=== PATIENT | male | born 2000 | race Caucasian/White ===

== ENCOUNTER 2021-12-13 08:43 | Inpatient (IN) | payer BC ==
[2021-12-13] VITALS (8 sets, daily range): BP systolic 120–134; BP diastolic 66–82; PULSE 73–82; TEMP 97.7–98.5
[~2021-12-13] VITALS: Ht 180.3 cm; Wt 118.2 kg
[2021-12-13 09:14] LABS: BASO # 0.1 K/mm3 (0.0-0.2); BASO % 0.3 % (0.0-2.0); EOS # 0.3 K/mm3 (0.0-0.7); EOS % 1.9 % (0.0-4.0); GRAN # 13.4 K/mm3 (1.4-6.5); GRAN % 80.3 % (42.2-75.2); HEMATOCRIT 42.6 % (42.0-52.0); HEMOGLOBIN 14.8 g/dl (13.5-18.0); LYMPH # 1.4 K/mm3 (1.2-3.4); LYMPH % 8.2 % (20.0-51.0); MEAN CELL VOLUME 82 fl (80.0-100.0); MEAN CORPUSCULAR HEMOGLOBIN 29 pg (27-31); MEAN CORPUSCULAR HGB CONC 35 g/dl (33.0-37.0); MEAN PLATELET VOLUME 11.7 fl (7.4-10.4); MONO # 1.5 K/mm3 (0.1-0.6); MONO % 8.9 % (1.7-9.3); PLATELET COUNT 199 K/mm3 (130-400); RED BLOOD COUNT 5.17 M/mm3 (4.20-5.60); REDCELL DISTRIBUTION WIDTH-CV 12.5 % (11.5-14.5)
[2021-12-13 09:32] LABS: ALBUMIN 3.2 gm/dL (3.5-5.0); BILIRUBIN,TOTAL 2.9 mg/dL (0.2-1.2); CALCIUM 9.2 mg/dL (8.4-10.2); CREATININE, serum 0.89 mg/dL (0.72-1.25); POTASSIUM 3.7 mmol/L (3.5-4.5); TOTAL PROTEIN 7.1 gm/dL (6.2-8.1)
[2021-12-13 09:34] LABS: MUCOUS Present (NOT PRESENT); PH 5 (5-8); SQUAMOUS EPITHELIAL 0-2 /hpf (0-10); URINE APPEARANCE Hazy (CLEAR/HAZY); URINE BACTERIA None Seen /hpf (NONE SEEN); URINE BILIRUBIN Positive (NEGATIVE); URINE BLOOD Negative (NEGATIVE); URINE COLOR Amber (YELLOW); URINE GLUCOSE Negative (NEGATIVE); URINE KETONE Trace (NEGATIVE); URINE LEUKOCYTE ESTERASE Negative (NEGATIVE); URINE NITRATE Negative (NEGATIVE); URINE PROTEIN(semi-quant) 1+ (NEGATIVE); URINE RBC 0-2 /hpf (0-2); URINE UROBILINOGEN >=4.0 (NEGATIVE); URINE WBC 20-50 /hpf (0-2)
[2021-12-13 09:47] LABS: COLLECTION METHOD CLEAN CATCH
[2021-12-13] MEDS ORDERED: NORCO 325 MG-51 TAB PO (13:49)
[2021-12-13] MEDS ORDERED: AMOXICILLIN 8751 TAB PO (13:50)
[2021-12-13] MEDS ORDERED: MOTRIN 600600 MG/TAB PO (13:50)
--- NOTE | 2021-12-13 16:35 | NUR ---
PT TO ROOM 348 PER BED WITH REPORT FROM [employer] @[id number]. PT IS A/O X4, LUNGS CTA, ABDOMENAL INCISIONS CDI WITH SULLIVAN SETT.ORIENTED PT AND FAMILY TO ROOM.
--- NOTE | 2021-12-13 20:06 | NUR ---
ASSESSMENT COMPLETE. PT. SITTING IN BED WITH FAMILY AT BEDSIDE. A&O. COMPLAINING OF MILD GAS PAIN. IV TO R AC. CALL LIGHT IN REACH. NO FURTHER NEEDS AT THIS TIME.
--- NOTE | 2021-12-13 20:40 | NUR ---
DISCHARGE INSTRUCTIONS GIVEN. QUESTIONS INVITED AND ANSWERED. INT REMOVED. CATHETER TIP INTAKE. PT. TOLERATED PROCEDURE WELL. PT. DISHCARGED.
== END 2021-12-13 20:40 | disposition home or self-care (01) | DRG 418 ==
LOC: COL.ER 08:43 → SURG 16:30
PROVIDERS: Emergency Medicine; ADMIT Surgery
PROC: BF131ZZ Fluoroscopy of Gallbladder and Bile Ducts using Low Osmolar Contrast (ICD-10-PCS; 2021-12-13)
PROC: 8E0W4CZ Robotic Assisted Procedure of Trunk Region, Percutaneous Endoscopic Approach (ICD-10-PCS; 2021-12-13)
PROC: 0FT44ZZ Resection of Gallbladder, Percutaneous Endoscopic Approach (ICD-10-PCS; principal; 2021-12-13 14:00)
DX: K81.0 Acute cholecystitis (principal); F84.0 Autistic disorder; F32.A Depression, unspecified; F41.9 Anxiety disorder, unspecified; G40.909 Epilepsy, unspecified, not intractable, without status epilepticus; Z72.89 Other problems related to lifestyle
CPT/HCPCS: J0330; J0690; J1100; J1885; J2405; J2543; J2704; J3010; J7120; Q9967